=== PATIENT | male | born 1985 | race Caucasian/White ===

== ENCOUNTER 2025-05-12 11:08 | Emergency (ER) | payer SELFPAY ==
[~2025-05-12] VITALS: Ht 177.8 cm; Wt 100.0 kg
[2025-05-12 11:11] VITALS: O2SAT 99
[2025-05-12] MEDS: ACETAMINOPHEN 325MG TABLET PO ONE (12:45)
[2025-05-12] MEDS: TETANUS, DIPHTHERIA, PERTUSSIS VAC/PF 0.5ML (>10YR OLD) IM ONE (12:46)
[2025-05-12 13:22] VITALS: BP 121/80; PULSE 85; RESP 16; TEMP 37; O2SAT 100
[2025-05-12] MEDS ORDERED: BO1 TP (13:22)
== END 2025-05-12 13:31 | disposition home or self-care (01) ==
LOC: ER 11:08
DX: S01.01XA Laceration without foreign body of scalp, initial encounter (principal); S40.019A Contusion of unspecified shoulder, initial encounter; E11.9 Type 2 diabetes mellitus without complications; X58.XXXA Exposure to other specified factors, initial encounter; Y93.89 Activity, other specified; Y92.89 Other specified places as the place of occurrence of the external cause; Y99.8 Other external cause status
CPT/HCPCS: 73030; 70450; 70486; 90715; 12001; 90471; 99285; Z7610 ×3; 12032

== ENCOUNTER 2025-07-07 02:53 | Emergency (ER) | payer MEDICAID ==
[~2025-07-07] VITALS: Ht 172.7 cm; Wt 96.0 kg
[~2025-07-07 02:53] MED LIST: BO1 TP
[2025-07-07 03:01] VITALS: O2SAT 100
[2025-07-07] MEDS: KETOROLAC 15MG/ML VIAL IM ONE (03:36)
[2025-07-07] MEDS ORDERED: LIDO-53 TP (04:03)
[2025-07-07] MEDS ORDERED: NAPR-1176 MT (04:03)
[2025-07-07 04:25] VITALS: BP 157/95; PULSE 60; RESP 20; TEMP 36.7; O2SAT 100
== END 2025-07-07 04:30 | disposition home or self-care (01) ==
LOC: ER 02:53
DX: M25.561 Pain in right knee (principal); E11.9 Type 2 diabetes mellitus without complications; Z79.1 Long term (current) use of non-steroidal anti-inflammatories (NSAID); Z79.899 Other long term (current) drug therapy
CPT/HCPCS: 99283; 73562; 96372; J1885